=== PATIENT | male | born 1965 | race Caucasian/White ===

== ENCOUNTER 2025-01-06 03:00 | Emergency (ER) | payer BC, SELFPAY ==
[2025-01-06] VITALS (7 sets, daily range): BP systolic 136–198; BP diastolic 82–122; BMI 33.2
[2025-01-06] MEDS: TORADOL 15 MG IV (03:52)
[2025-01-06 04:17] LABS: Urine Character Clear (Clear)
[2025-01-06 04:24] LABS: ALT (SGPT) 60 U/L (0-50); AST (SGOT) 40 U/L (17-59); Albumin 4.7 g/dl (3.5-5.0); Alkaline Phosphatase 56 U/L (38-126); Blood Urea Nitrogen 13 mg/dl (9-20); Calcium 9.2 mg/dl (8.4-10.2); Carbon Dioxide 23 mmol/L (22-30); Chloride 99 mmol/L (98-107); Glucose 306 mg/dl (70-99); Lipase 38 U/L (23-300); Potassium 3.9 mmol/L (3.5-5.1); Sodium 133 mmol/L (135-145); Total Protein 7.0 g/dl (6.3-8.2); eGFR > 60.00
[2025-01-06 04:32] LABS: Troponin I < 0.012 ng/ml
[2025-01-06 04:35] LABS: Urine Red Blood Cell 0-2 /HPF (0-2); Urine White Cell 0-2 /HPF (0-5)
[2025-01-06 05:18] LABS: Hematocrit 42.0 % (39.0-52.0); Hemoglobin 15.7 g/dL (13.0-18.0); Mean Corp Hgb Conc. 37.4 g/dL (33.0-37.0); Mean Corpuscular Volume 91.3 fL (80.0-94.0); Nucleated Red Blood Cells % 0 % (-); Platelet Count 130 10^3/uL (130-400); Red Cell Dist. Width 11.4 % (11.5-14.5)
--- NOTE | 2025-01-06 05:28 | ED.GENMED ---
History of Present Illness
General
Chief Complaint: Musculo-Skeletal Complaint
Source: patient
Time Seen by Provider: 01/06/25 03:27
Nursing documentation reviewed up to this point in time: agreed with
History of Present Illness
History of Present Illness:
Note:
CHIEF COMPLAINT(S)
Pain in the hip, radiating to the back flank.
HISTORY OF PRESENT ILLNESS
The patient is a 59-year-old male who presents with pain in the hip that began on Thursday. The pain progressively worsened, leading him to seek medical attention at an urgent care facility where he was diagnosed with a pulled muscle. Despite this,
the pain intensified, leading to significant discomfort. The patient describes the pain as localized primarily in the hip and radiating to the back flank. He likens the pain sensation to that of a 'knife' and reports associated symptoms of dry
heaving, likely from the intensity of the pain. He denies any blood in his urine, fever, chills, or abnormal bowel movements.
SOCIAL DETERMINANTS AFFECTING HEALTH
The patient mentioned the pain could possibly be related to a prior rotator cuff surgery, indicating a potential influence on her current condition.
REVIEW OF SYSTEMS
- Musculoskeletal: Pain in the hip radiating to the back flank, described as severe and progressive.
- Gastrointestinal: Reports of dry heaving, potentially due to pain.
- Urinary: Denies blood in urine.
PHYSICAL EXAM
General: Alert, no acute distress.
Skin: Warm, dry.
Head: Normocephalic, atraumatic.
Neck: Supple, trachea midline.
Eye, Ears, Nose, and Throat: Oral mucosa moist.
Cardiovascular: Normal peripheral perfusion, no edema.
Respiratory: Respirations are non-labored.
Gastrointestinal: Abdomen nondistended.
Back: Normal range of motion, Normal alignment.
Musculoskeletal: Pain noted in the hip region and back flank.
Neurological: Alert and oriented to person, place, time, and situation. No focal neurological deficit observed.
Psychiatric: Cooperative, appropriate mood & affect.
PLAN
- Conduct a computed tomography (CT) scan of the abdomen and pelvis with intravenous contrast.
- Obtain blood work and a urine sample for further analysis.
- Consider differential diagnoses including a urinary tract infection, kidney stone, or appendicitis, and adjust management based on CT findings.
- Evaluate the possibility of the pain being due to a muscle pull after ruling out other serious conditions.
DIFFERENTIAL DIAGNOSIS
The Differential Diagnosis includes, in no particular order and is not limited to:
- Muscle strain or pull
- Kidney stones
- Urinary tract infection
- Appendicitis
- Arthritis or joint inflammation
- Abdominal aortic aneurysm
- Gallbladder disease
- Herniated disc
- Spinal stenosis
- Inflammatory bowel disease
01/06/25 - 07:11
The patient reports experiencing minimal relief from current treatment. Valium has been prescribed to assist with symptoms. Arrangements made for the patient to be signed out, with instructions to follow up with orthopedics if discharged.
Phy Exam
Physical Exam
Physical Exam:
.
Course
Orders/Labs/Results
Orders:
Orders
01/06/25 03:37
CT Abd/Pel (IV only)-[facility] only Urgent
Comment:
Reason For Exam: left abd/flank/groin pain
01/06/25 03:38
Ketorolac [Toradol] 15 mg IV NOW STA
01/06/25 03:46
Complete Blood Count/With Diff Urgent
Comprehensive Metabolic Panel Urgent
Lipase Urgent
Troponin I Urgent
01/06/25 03:50
Urinalysis Reflex To Culture Urgent
Date Specimen was Collected: 01/06/25
Time Specimen was Collected: 03:49
Urine Microscopic Reflex Cult Urgent
01/06/25 06:12
Ketorolac [Toradol] 15 mg IV NOW STA
01/06/25 06:20
Acetaminophen 1000MG/100Ml [Ofirmev] 1,000 mg in 100 ml IV ONCE
Acetaminophen IV Indication:: ED Narcotic Naive Pt-ONCE
01/06/25 07:10
diazePAM [Valium Injection] 10 mg IV NOW STA
Abnormal Lab Results
01/06/25 01/06/25
03:46 03:50
RBC 4.60 L 10^6/uL
(4.70-6.10)
MCH 34.1 H pg
(27.0-31.0)
MCHC 37.4 H g/dL
(33.0-37.0)
RDW 11.4 L %
(11.5-14.5)
MPV 10.5 H fL
(7.4-10.4)
Sodium 133 L mmol/L
(135-145)
Glucose 306 H mg/dl
(70-99)
Total Bilirubin 3.9 H mg/dl
(0.2-1.3)
ALT 60 H U/L
(0-50)
Urine Ketones 3+ A
(Negative)
Urine Glucose 4+ A
(Negative)
Urine Albumin (Reflex) 2+ A
(Neg - Trace)
01/06/25 03:46
01/06/25 03:46
Vital Signs
Initial and Last Documented VS:
Initial Vital Signs
Temp Pulse Resp BP Pulse Ox
98.3 F 105 18 164/95 100
01/06/25 03:01 01/06/25 03:01 01/06/25 03:01 01/06/25 03:01 01/06/25 03:01
Last Documented Vital Signs
Temp Pulse Resp BP Pulse Ox
98.2 F 76 20 136/89 99
01/06/25 12:12 01/06/25 12:12 01/06/25 12:12 01/06/25 12:12 01/06/25 12:12
*Pulse Oximetry
SaO2: 100
Oxygen Mode of Delivery: Room air
Patient hypoxic: no
*Critical Care Note
Total Time (30-74mins, 75-104mins- exclusive of procedures): Not Applicable
Update Note
Update Note:
NAME: KONG MCCRAY
DATE OF EXAM: 01/06/2025
Patient No: [id number]
Physician: DONALD
Date of : 1965
Past Medical History (entered by Technologist):
Reason For Exam (entered by Technologist):
Other Notes (entered by Technologist): lt hip/groin pain since thursday
Additional Information (per [facility]iologist):
CT abdomen and pelvis with IV contrast
IMPRESSION:
Appendix normal. No bowel obstruction or diverticulitis. Stomach the
Hepatic steatosis. Cholelithiasis without cholecystitis. No pancreatitis. No obstructing renal stone. Abdominal aorta is of normal caliber.
Finalized at 5:08 AM EST
Jose Major M.D.
This report has been electronically signed and verified by the Radiologist whose name is printed above.
ED Attending Note
-
Portions of this chart may have been created with voice recognition software.� Occasional wrong word or��sound alike� substitutions may have occurred due to the inherent limitations of voice recognition software.
Discharge Plan
Departure
Patient Disposition: Home (Routine Discharge)
Date of Disposition: 01/06/25
Time of Disposition: 11:38
Patient with high blood pressure during this ER visit?: Yes
Condition: Good
Discharge Problem:
Acute left flank pain
Instructions: Muscle and Bone Pain (DC), BLOOD PRESSURE
Prescriptions:
New
gabapentin [Neurontin] 300 mg capsule
300 mg PO TID PRN (Reason: pain) Qty: 30 0RF
Rx Instructions:
do not take if you need to drive.
Referrals:
Emilio Sinclair MD [Active, Anesthesiology] - Call in 1-3 days for appt
Eric Mohr MD [Active, Orthopedics]
Activity Restrictions/Additional Instructions:
Thank You for choosing [facility].
It was a pleasure meeting you and taking part in your care. We hope for your continued healing and wellness.
Please read discharge instructions in their entirety. However, they are for general education and may not describe your exact diagnosis at discharge. Information on your ER visit and medical conditions were discussed with you along with appropriate
follow up information...
If indicated, please take your medications as instructed and indicated on discharge paperwork.
Please schedule a follow up appointment as directed. Call to schedule an appointment
Please return to the emergency department with ANY change in, persisting, or worsening of symptoms. If any of your symptoms do not improve, or persist, or become more severe within 6-12 hours, please return to the emergency department for further
care.
Please return to the emergency department if you develop a headache, neck pain/stiffness, fever greater than 100.4F, chest pain, shortness of breath, persistent nausea, vomiting, slurred speech, difficulty walking, numbness/tingling, weakness, signs
of infection or any other symptoms that are worrisome to you.
If you have any questions or concerns please do not hesitate to call the Hospital at or E-mail me directly at [email or web address]
Interventions
Interventions:
*Risk Screen - Suicide Last Done: 01/06/25 03:01
*General Assessment Last Done: 01/06/25 03:01
*Neglect/Abuse Screening Last Done: 01/06/25 03:01
*ED- Fall Risk Assessment Last Done: 01/06/25 06:14
*ED COVID-19 Vaccine History Last Done: 01/06/25 06:14
*Nursing Disposition Last Done: 01/06/25 12:12
ED-Musculoskeletal Assessment Last Done: 01/06/25 06:14
Discharge Date and Time
Discharge Date/Time: 01/06/25 12:13
Print Language: ROMANSH
[2025-01-06] MEDS: OFIRMEV 100 IV (06:23)
[2025-01-06] MEDS: VALIUM INJECTION 10 MG IV (07:13)
== END 2025-01-06 12:13 | disposition home or self-care (01) ==
LOC: EMR 03:00
PROVIDERS: EMERGENCY PHYSICIAN Student in an Organized Health Care Education/Training Program
DX: R10.9 Unspecified abdominal pain (principal); M25.559 Pain in unspecified hip
CPT/HCPCS: 96374; 96375; 99284; 74177; 80053; 81003; 81015; 83690; 84484; 85025; Q9967